=== PATIENT | male | born 2000 | race Caucasian/White ===

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

== ENCOUNTER 2025-08-06 10:19 | Emergency (ER) | payer MEDICAID ==
[~2025-08-06] VITALS: Ht 180.3 cm; Wt 86.8 kg
[~2025-08-06 10:19] MED LIST changes: -ALBU8HFA PO; -BENZ-16 PO; +CHLO25CA10 PO; +MAGN200T5 PO; +MULT-1249 PO; +NALT50TA5 PO; +NO HOME MEDS; +PANT40TA54 PO; +POTA-206 PO; +THIA50TA10 PO
[2025-08-06 10:29] VITALS: BP 178/100; PULSE 100; TEMP 97.4; O2SAT 99
[2025-08-06 12:36] VITALS: RESP 16
--- NOTE | 2025-08-06 12:36 | Physician Documentation ---
History of Present Illness ~ General Chief Complaint: Flu Symptoms Stated Complaint: FATIGUE/HOT FLASHES/WEAKNESS/SOB Time Seen by MD: 11:28 OK to notify your PCP?: Yes Primary Medical Doctor: MANFRED Source: patient Mode of Arrival: POV Exam Limitations: no limitations History of Present Illness Initial Comments This is a 25-year-old male who comes in stating that earlier today he started feeling like his heart was racing follow up by sweaty in his in his hands and feet. He says that has started to feel dizzy which concerned him and prompted him to come to the ER. He states that is he was seen here a couple of months ago for the same issue where he was found to be malnourished and dehydrated. The patient states that is this is secondary to heavy chronic alcohol use. The patient states that is he has cut his drinking down significantly but he does still drink on a daily basis. The patient states that is he feels better now though he feels very tired. He denies current chest pain. He denies any significant past medical history. Medication Reconciliation Allergies: Coded Allergies: No Known Allergies (Unverified , 08/06/25) Scheduled Magnesium (Magnesium Oxide), 1 TAB PO DAILY Multivitamin (Multivitamin), 1 TAB PO DAILY Naltrexone Hcl (Naltrexone Hcl), 50 MG PO DAILY Pantoprazole Sodium (Pantoprazole Sodium), 40 MG PO BKF Potassium Chloride (K-Dur), 2 TAB PO DAILY Thiamine HCl (Vitamin B-1), 2 TAB PO DAILY Scheduled PRN Chlordiazepoxide Hcl (Librium), 2 CAP PO HSPRN PRN for anxiety Miscellaneous Medications Home Med List (No Home Medications), (Reported) Past Medical History Past Medical History: Depression Past Surgical History: noncontributory Patient History: FH: breast cancer GRANDFATHER OR GRANDMOTHER Graves' disease aunt Alcohol Use: Rarely Drug Use: marijuana Lives In: Home Physical Exam Physical Exam Vital Signs: Temperature: 97.4, Source: Temporal, Heart Rate: 100, Respiratory Rate: 16, BP: 178/100, Pulse Oximetry: 99, Weight: 86.800 Oxygen Flow Rate: 0 General Appearance: alert, WD/WN, no apparent distress Respiratory Lungs are clear to auscultation all garzon. No accessory muscle use or retractions Cardiovascular No rubs, gallops or murmurs. No peripheral edema, cyanosis or clubbing of the extremities. Neurologic: oriented x4, fruit preserver II-XII nml as tested, memory intact, oriented to time, oriented to person, oriented to place, oriented to events Motor / Sensory: no motor deficit Psychiatric: normal mood/affect Skin: normal color, warm/dry Progress Results/Orders Results/Orders Completed Orders - DAVID MONTEIRO Lorazepam Tablet (Ativan Tablet) (08/06/25 12:30) Medications Received in ER Medications (Trade) Dose Ordered Sig/Magi Route PRN Reason Start Time Stop Time Status Last Admin Dose Admin (Ativan tablet) 1 mg ONCE ONCE PO 08/06/25 12:30 08/06/25 12:31 DC 08/06/25 12:36 1 MG Vital Signs 08/06/25 08/06/25 10:29 12:36 Temp 97.4 Pulse 100 Resp 16 16 B/P (MAP) 178/100 Pulse Ox 99 O2 Flow Rate 0 Medical Decision Making Additional information obtaine: old records Findings I offered the patient an IV and fluids in his labs however he had refused. States he does not think he does not need a workup or IV this time. He believes oral fluids with the appropriate. The patient states he has been taking oral vitamins including folic acid and magnesium and states that is after he took those this morning he began to feel better. Clinically the patient is well- appearing in no apparent distress. He does use are all on a daily basis has been though he states he has significantly decrease his alcohol intake. Is symptoms sound consistent with hyperventilation syndrome and/or panic attack. I gave the patient p.o. Ativan and allowed him to rest. After re-evaluating the patient he states he feels much better. You can follow up with the primary care physician for recheck in the next one or two days and return to the ER for any worsening or concerning symptoms Differential Diagnosis Hyperventilation syndrome. Palpitations. Panic attack. Departure Disposition: HOME / SELF CARE / HOMELESS Impression: Primary Impression: Palpitations Additional Impression: Alcohol abuse Condition: Stable Discharge Instructions: Palpitations, Panic Attack Additional Instructions: Keep yourself well hydrated and continue on your current supplements. Follow up with the primary care physician for recheck in the next one or two days and return to the ER for any worsening or concerning symptoms Referrals: NO PRIMARY CARE PROVIDER (PCP) Signature Scribe Signature: No scribe Attestation: The note accurately reflects work and decisions made by me.David GA 08/06/25 13:51 DAVID MONTEIRO Aug 06, 2025 12:36
== END 2025-08-06 14:13 | disposition home or self-care (01) ==
LOC: ER 10:19
DX: R00.2 Palpitations (principal); F10.10 Alcohol abuse, uncomplicated; F32.A Depression, unspecified; F12.90 Cannabis use, unspecified, uncomplicated; Z79.899 Other long term (current) drug therapy; Y90.9 Presence of alcohol in blood, level not specified
CPT/HCPCS: 99283